=== PATIENT | male | born 1935 | race Two or more races ===

== ENCOUNTER 2017-10-09 18:10 | Inpatient (IN) | payer OTHER ==
[~2017-10-09] VITALS: Ht 177.8 cm; Wt 81.6 kg
[2017-10-09] MEDS ORDERED: PANTOPRAZOLE SO40 MG (18:52)
[2017-10-09] MEDS ORDERED: DONEPEZIL HCL5 MG (18:53)
[2017-10-09] MEDS ORDERED: ALPRAZOLAM1 MG (18:53)
[2017-10-09] MEDS ORDERED: ASPIRIN81 M1 (18:53)
[2017-10-09] MEDS ORDERED: QUETIAPINE FUM100 MG (18:54)
== END 2017-10-13 14:36 | disposition home or self-care (01) | DRG 379 ==
LOC: ER 18:10 → MEDJ 10-10 10:23 → ICU-2 10-10 10:23 → SEC-K 10-11 15:06 → MEDJ 10-11 15:09
PROC: 30233N1 Transfusion of Nonautologous Red Blood Cells into Peripheral Vein, Percutaneous Approach (ICD-10-PCS; principal; 2017-10-10)
PROC: BR20ZZZ Computerized Tomography (CT Scan) of Cervical Spine (ICD-10-PCS; 2017-10-10)
PROC: BW28ZZZ Computerized Tomography (CT Scan) of Head (ICD-10-PCS; 2017-10-10)
DX: K92.2 Gastrointestinal hemorrhage, unspecified (principal); R04.0 Epistaxis; S02.2XXA Fracture of nasal bones, initial encounter for closed fracture; W06.XXXA Fall from bed, initial encounter; Y93.89 Activity, other specified; Y92.092 Bedroom in other non-institutional residence as the place of occurrence of the external cause; Y99.8 Other external cause status; Z78.1 Physical restraint status

== ENCOUNTER 2017-10-21 13:44 | Inpatient (IN) | payer OTHER ==
[~2017-10-21] VITALS: Ht 162.6 cm; Wt 59.0 kg
[~2017-10-21 13:44] MED LIST: ALPRAZOLAM1 MG; ASPIRIN81 M1; DONEPEZIL HCL5 MG; PANTOPRAZOLE SO40 MG; QUETIAPINE FUM100 MG
[2017-11-01] MEDS ORDERED: PANTOPRAZOLE SO40 MG PO (15:40)
[2017-11-01] MEDS ORDERED: ASA-EC81 MG PO (15:40)
[2017-11-01] MEDS ORDERED: PERMETHRIN TOP (15:40)
[2017-11-01] MEDS ORDERED: ARICEPT5 MG PO (15:40)
[2017-11-01] MEDS ORDERED: ZANTAC150 MG PO (15:40)
[2017-11-01] MEDS ORDERED: QUETIAPINE FUMA25 MG PO (15:40)
== END 2017-11-01 17:37 | disposition home or self-care (01) | DRG 177 ==
LOC: ER 13:44 → SURH 23:14 → SURG 23:14 → SURH 10-24 13:43
PROC: 4A033R1 Measurement of Arterial Saturation, Peripheral, Percutaneous Approach (ICD-10-PCS; principal; 2017-10-21)
PROC: 3E0F7GC Introduction of Other Therapeutic Substance into Respiratory Tract, Via Natural or Artificial Opening (ICD-10-PCS; 2017-10-21)
PROC: B020ZZZ Computerized Tomography (CT Scan) of Brain (ICD-10-PCS; 2017-10-21)
PROC: BB24ZZZ Computerized Tomography (CT Scan) of Bilateral Lungs (ICD-10-PCS; 2017-10-23)
PROC: 8E0ZXY6 Isolation (ICD-10-PCS; 2017-10-24)
DX: J15.212 Pneumonia due to Methicillin resistant Staphylococcus aureus (principal); B37.1 Pulmonary candidiasis; N39.0 Urinary tract infection, site not specified; B37.0 Candidal stomatitis; R09.02 Hypoxemia; J84.112 Idiopathic pulmonary fibrosis; G30.8 Other Alzheimer's disease; F02.80 Dementia in other diseases classified elsewhere, unspecified severity, without behavioral disturbance, psychotic disturbance, mood disturbance, and anxiety; Z74.01 Bed confinement status; E86.0 Dehydration; R39.2 Extrarenal uremia; B96.5 Pseudomonas (aeruginosa) (mallei) (pseudomallei) as the cause of diseases classified elsewhere; B96.4 Proteus (mirabilis) (morganii) as the cause of diseases classified elsewhere; N18.3 Chronic kidney disease, stage 3 (moderate); J15.1 Pneumonia due to Pseudomonas; B86 Scabies; R04.0 Epistaxis

== ENCOUNTER 2018-03-06 14:30 | Emergency (ER) | payer OTHER ==
[~2018-03-06] VITALS: Ht 165.1 cm; Wt 45.4 kg
[~2018-03-06 14:30] MED LIST changes: +ARICEPT5 MG PO; +ASA-EC81 MG PO; +PANTOPRAZOLE SO40 MG PO; +PERMETHRIN TOP; +QUETIAPINE FUMA25 MG PO; +ZANTAC150 MG PO
== END 2018-03-06 19:44 | disposition home or self-care (01) ==
LOC: ER 14:30
DX: S00.12XA Contusion of left eyelid and periocular area, initial encounter (principal); S00.11XA Contusion of right eyelid and periocular area, initial encounter; T76.01XA Adult neglect or abandonment, suspected, initial encounter; G30.1 Alzheimer's disease with late onset; F02.80 Dementia in other diseases classified elsewhere, unspecified severity, without behavioral disturbance, psychotic disturbance, mood disturbance, and anxiety; W22.8XXA Striking against or struck by other objects, initial encounter; Y93.89 Activity, other specified; Y92.128 Other place in nursing home as the place of occurrence of the external cause; Y99.8 Other external cause status

== ENCOUNTER 2019-03-15 17:37 | Emergency (ER) | payer OTHER ==
[~2019-03-15] VITALS: Ht 167.6 cm; Wt 56.7 kg
[2019-03-16] MEDS ORDERED: ALBA-LYBE LIQU178 ML PO (07:13)
== END 2019-03-16 09:53 | disposition home or self-care (01) ==
LOC: ER 17:37
DX: E86.0 Dehydration (principal); R53.1 Weakness